=== PATIENT | female | born 1965 | race Caucasian/White ===

== ENCOUNTER → 2020-08-30 | Outpatient (CLI) | payer BC ==
[~2020-08-30] MED LIST: BUSP15TA60 PO; DOCU-143 PO; GADOBUTROL 10 MMOL/10 ML (GADAVIST) VIAL IV ONE; HYDR-4226 PO; HYDR-4227 PO; HYDR25TA4 PO; IBUP-16 PO; IBUP-1773 PO; OMEP40CA27 PO; OXYB10TA29 PO; PROP50TA2 PO; SIME80TA16 PO; VENL150C PO; VENL225T PO
[2020-08-30 13:03] LABS: ALANINE AMINOTRANSFERASE 21 U/L (0-55); ALBUMIN 4.2 GM/DL (3.2-4.5); ALKALINE PHOSPHATASE 70 U/L (40-136); BILIRUBIN,TOTAL 0.4 MG/DL (0.1-1.0); BUN/CREATININE RATIO 12; CARBON DIOXIDE 27 MMOL/L (21-32); CHLORIDE 104 MMOL/L (98-107); CREATININE SERUM 0.89 MG/DL (0.60-1.30); GFR ESTIMATED > 60; GLUCOSE 91 MG/DL (70-105); POTASSIUM 3.6 MMOL/L (3.6-5.0); SODIUM 140 MMOL/L (135-145); TOTAL PROTEIN 6.7 GM/DL (6.4-8.2)
--- NOTE | 2020-08-30 14:39 | Diagnostic Imaging Report ---
PROCEDURE: MR imaging of the brain with and without contrast. TECHNIQUE: Multiplanar, multisequence MR imaging of the brain was performed with and without contrast. INDICATION: Head pain. FINDINGS: The orbits, paranasal sinuses, and mastoids are clear. No cerebellopontine angle mass or mass effect. There is no evidence for cortical cerebral edema. No hydrocephalus. No hemorrhage. No findings of an infarct. No features suggestive of elevated pressures. With IV contrast, there is no abnormal parenchymal or meningeal enhancement. The basilar cisterns are patent. No sulcal effacement. There are no abnormal extra-axial fluid collections. IMPRESSION: Unremarkable brain MRI with and without contrast. Dictated by: Dictated on workstation # [id number]
== END ==
LOC: RAD 13:15
PROVIDERS: ATTEND Psychologist
DX: G44.84 Primary exertional headache (principal)
CPT/HCPCS: 36415; 70553; 80053